=== PATIENT | male | born 1970 | race Two or more races ===

== ENCOUNTER → 2016-08-29 | Outpatient (CLI) | payer OTHER ==
--- NOTE | 2016-08-29 10:31 | RAD ---
Exam performed: 3 views bilateral knees. History: Bilateral knee pain, status post fall on 08/26/16 Date of service: 08/29/16. Comparison: None available Findings: There is mild narrowing of both medial and lateral tibiofemoral as well as patellofemoral joint. Osteophytic spurring is seen imaging from the articular surface of patella. There is no fracture or dislocation. No soft tissue swelling or joint effusion. There is severe narrowing of the left medial tibiofemoral joint and moderate narrowing of the patellofemoral joint. Mild osteophytic spurring is seen imaging from the articular surface of patella. There is a small suprapatellar joint effusion. No acute fracture or dislocation is seen. Impression: Degenerative arthrosis involving bilateral knee joints. No acute abnormality seen.
== END | disposition home or self-care (01) ==
LOC: DXRADRC 10:09 → EEVIPCON 10:09
PROVIDERS: ATTEND Family Medicine
DX: M17.0 Bilateral primary osteoarthritis of knee (principal); M25.462 Effusion, left knee; M25.461 Effusion, right knee; Z91.81 History of falling
CPT/HCPCS: 73562